=== PATIENT | male | born 1950 | race Caucasian/White ===

== ENCOUNTER → 2023-06-16 12:27 | Outpatient (REF) | payer MEDICARE, OTHER, SELFPAY | LOC: RCS 12:27 | PROVIDERS: ATTENDING PHYSICIAN Family Medicine | DX: R07.9 Chest pain, unspecified (principal) | CPT/HCPCS: 93017; 93350 ==

== ENCOUNTER → 2024-07-14 10:35 | Outpatient (REF) | payer MEDICARE, OTHER, SELFPAY | LOC: RAD 10:35 | PROVIDERS: ATTENDING PHYSICIAN Family Medicine | DX: M79.641 Pain in right hand (principal); M79.642 Pain in left hand | CPT/HCPCS: 73130 ==